=== PATIENT | male | born 1980 | race Caucasian/White ===

== ENCOUNTER 2016-07-16 16:21 | Emergency (ER) | payer OTHER | END 2016-07-16 20:55 | disposition home or self-care (01) | LOC: ER1 16:21 | DX: S93.401A Sprain of unspecified ligament of right ankle, initial encounter (principal); S39.012A Strain of muscle, fascia and tendon of lower back, initial encounter; S50.02XA Contusion of left elbow, initial encounter; F17.210 Nicotine dependence, cigarettes, uncomplicated; W18.09XA Striking against other object with subsequent fall, initial encounter; Y93.01 Activity, walking, marching and hiking; Y92.89 Other specified places as the place of occurrence of the external cause | CPT/HCPCS: 72131; 73080; 73610; 99283 ==